=== PATIENT | female | born 1960 | race African-American/Black ===

== ENCOUNTER 2018-05-16 13:25 | Emergency (ER) | payer MEDICARE, OTHER ==
[2018-05-16] MEDS: KETOROLAC 30 MG INJ IM (14:41)
== END 2018-05-16 15:20 | disposition home or self-care (01) ==
LOC: FTE 13:25
DX: M25.561 Pain in right knee (principal); M25.562 Pain in left knee; E11.9 Type 2 diabetes mellitus without complications; I10 Essential (primary) hypertension; Z79.4 Long term (current) use of insulin; Z79.82 Long term (current) use of aspirin; Z86.73 Personal history of transient ischemic attack (TIA), and cerebral infarction without residual deficits
CPT/HCPCS: 73562; 73562-50; 81025; 96372; 99284-25

== ENCOUNTER 2018-12-26 22:24 | Emergency (ER) | payer SELFPAY, OTHER, MEDICARE | END 2018-12-27 00:48 | disposition left against medical advice (07) | LOC: FTE 22:24 | DX: Z53.21 Procedure and treatment not carried out due to patient leaving prior to being seen by health care provider (principal) | CPT/HCPCS: 82962 ==

== ENCOUNTER 2019-03-08 09:40 | Emergency (ER) | payer MEDICARE, OTHER ==
[2019-03-08] MEDS: ACETAMINOPHEN 500 MG TAB PO (10:52)
== END 2019-03-08 12:05 | disposition home or self-care (01) ==
LOC: FTE 09:40
DX: M25.562 Pain in left knee (principal); I10 Essential (primary) hypertension; E11.9 Type 2 diabetes mellitus without complications; Z79.82 Long term (current) use of aspirin; Z79.4 Long term (current) use of insulin; Z86.73 Personal history of transient ischemic attack (TIA), and cerebral infarction without residual deficits
CPT/HCPCS: 73562; 99283-25